=== PATIENT | male | born 1955 | race Caucasian/White ===

== ENCOUNTER 2020-01-11 15:22 | Inpatient (IN) | payer OTHER ==
--- NOTE | 2020-01-10 19:00 | NUR ---
BELT LOOP MAKER NOTE: PATIENT ARRIVED TO UNIT VIA ACLS PROTOCOL. 64-YEAR-OLD MALE WITH DX: POSSIBLE COVID. AAOX4. ON ROOM AIR, TOLERATING WELL, O2 SAT 94%. NO C/O PAIN AT THIS TIME. LUNG SOUNDS ARE CLEAR BUT DIMINISHED THROUGHOUT. ON DROPLET AND CONTACT ISOLATION. AMBULATORY WITH STANDBY ASSIST. BOWEL AND BLADDER CONTINENT. SKIN ISSUES NOTED, PHOTOS TAKEN WITH VERBAL CONSENT, AND PLACED IN CHART. ON BARREL BANDER SHOWING NSR, HR 80s. VITAL SIGNS TAKEN: TEMP 98.5F, HR 86, RR 18, O2 SAT 94%, BP 108/74. PATIENT HAS (R) AC G18; C/D/I. FLUSHING WELL. SAFETY PRECAUTIONS IMPLEMENTED. BED LOCKED, LOW POSITION, HOB ELEVATED, AND SIDE RAILS X 2 UP. CALL LIGHT PLACED WITHIN REACH. WILL CONT. TO MONITOR PATIENT. Addendum: 01/12/20 at 0354 by SIMONE AMEZQUITA RN WRONG TIME DOCUMENTED.
[~2020-01-11] VITALS: Ht 170.2 cm; Wt 70.8 kg
--- NOTE | 2020-01-11 15:40 | NUR ---
PT TO ER BED 08. HERE FOR FEVER W/ COUGH AND CONGESTION X 5 DAYS. PT STATES WAS TESTED FOR COVID19 YESTERDAY. TAKING TYLENOL AND COUGH MEDICINE W/ NO RELIEF. PT IS FEBRILE CLINICAL TRAINING SPECIALIST. PLACED ON MONITOR. AWAITING MD GRIGSBY.
--- NOTE | 2020-01-11 15:53 | NUR ---
DR LOPEZ AT BEDSIDE FOR EVAL.
[2020-01-11] MEDS ORDERED: ACETAMINOPHEN ES 500 MG TABLET PO ONE (16:00)
[2020-01-11 16:03] LABS: BASOPHILS % (AUTO) 0.7 % (0.0-2.0); EOSINOPHILS % (AUTO) 0.1 % (0.0-6.0); HEMATOCRIT 46 % (39-51); HEMOGLOBIN 15.9 g/dL (13.5-17.5); LYMPHOCYTES # (AUTO) 0.7 /CMM (0.8-4.8); LYMPHOCYTES % (AUTO) 10.1 % (20.0-44.0); MEAN CORPUSCULAR HGB CONC 34 g/dl (31.0-36.0); MEAN CORPUSCULAR VOLUME 106 fL (80-96); MONOCYTES # (AUTO) 0.8 /CMM (0.1-1.30); MONOCYTES % (AUTO) 10.6 % (2.0-12.0); NEUTROPHILS # (AUTO) 5.7 /CMM (1.8-8.9); NEUTROPHILS % (AUTO) 78.5 % (43.0-81.0); PLATELET COUNT (AUTO) 221 /CMM (150-450); RED BLOOD CELL COUNT(AUTO) 4.38 MIL/uL (4.5-6.0); WHITE BLOOD COUNT (AUTO) 7.2 K/uL (4.3-11.0)
--- NOTE | 2020-01-11 16:10 | NUR ---
RADIOLOGY AT BEDSIDE FOR CHEST XRAY.
[2020-01-11 16:16] LABS: CALCIUM, SERUM 8.6 mg/dL (8.5-10.1); CARBON DIOXIDE 26 mmol/L (21-32); CHLORIDE 97 mmol/L (98-107); CREATININE 0.9 mg/dL (0.6-1.3); GLUCOSE 140 mg/dL (74-106); POTASSIUM 4.3 mmol/L (3.5-5.1); SODIUM SERUM 133 mmol/L (136-145); UREA NITROGEN, BLOOD 9 mg/dL (7-18)
[2020-01-11 16:28] LABS: ALANINE AMINOTRANSFERASE 75 U/L (12-78); ALKALINE PHOSPHATASE 134 U/L (46-116); ASPARTATE AMINOTRANSFERASE 162 U/L (15-37); B-TYPE NATRIURETIC PEPTIDE 55 PG/ML (0-125); BILIRUBIN,TOTAL 0.3 mg/dL (0.2-1.0); TOTAL PROTEIN, SERUM 6.7 g/dL (6.4-8.2)
[2020-01-11] MEDS ORDERED: ACETAMINOPHEN ES 500 MG TABLET ONE (16:28)
[2020-01-11] MEDS ORDERED: PROM118S5 PO (16:30)
[2020-01-11] MEDS ORDERED: ACET-2605 PO (16:30)
[2020-01-11 16:31] LABS: D-DIMER 1.33 mg/L(FEU (0.17-0.50)
[2020-01-11 16:35] LABS: APPEARANCE,URINE Clear (CLEAR); BILIRUBIN,URINE MODERATE (NEGATIVE); BLOOD, URINE Negative Ery/uL (NEGATIVE); COLOR,URINE Yellow (YELLOW); KETONES,URINE Trace (NEGATIVE); LEUKOCYTE ESTERASE ,URINE Negative (NEGATIVE); NITRITE, URINE Negative (NEGATIVE); PROTEIN,URINE 30 mg/dl (NEGATIVE); UGLUCOSE Negative (NEGATIVE)
--- NOTE | 2020-01-11 17:01 | NUR ---
[facility] - CHASIDY ROMANO - PAGED VIA EXCHANGE
[2020-01-11 17:23] LABS: BACTERIA,URINE Few /HPF (None Seen); RBC,URINE 0-2 /HPF (0-2); SQUAMOUS EPITHELIAL CELL,UR Few /HPF (None Seen); WBC,URINE 0-2 /HPF (0-3)
[2020-01-11 17:34] LABS: CREATINE KINASE, TOTAL 41 U/L (39-308); FERRITIN 2835 ng/mL (8-388)
[2020-01-11 17:39] LABS: C-REACTIVE PROTEIN 3.4 mg/dL (0.0-0.9)
[2020-01-11 17:43] LABS: BAND % (MANUAL) 6 % (0.0-5.0); LYMPHOCYTES % (MANUAL) 11 % (16-48); MONOCYTES % (MANUAL) 8 % (0-11.0); NEUTROPHILS % (MANUAL) 75 (42-76)
[2020-01-11] MEDS ORDERED: IV NS 0.9% 1,000 ML IV PRN (18:02)
[2020-01-11] MEDS ORDERED: HYDROCODONE/APAP 5/325MG TABLET PO PRN (18:30)
[2020-01-11] MEDS ORDERED: MAGNESIUM HYDROXIDE 30 ML UDC PO PRN (18:30)
[2020-01-11] MEDS ORDERED: ZOLPIDEM TARTRATE 5 MG TABLET PO PRN (18:30)
[2020-01-11] MEDS ORDERED: GUAIFENESIN/CODEINE 10 ML UDC PO PRN (18:30)
[2020-01-11] MEDS ORDERED: Z GUARD REMEDY 2 OZ OINT TP PRN (18:30)
[2020-01-11] MEDS ORDERED: ONDANSETRON HCL/PF 4 MG/2 ML VIAL IVP PRN (18:30)
[2020-01-11] MEDS ORDERED: ACETAMINOPHEN 325 MG TABLET PO PRN (18:30)
[2020-01-11] MEDS ORDERED: MAG HYDROX/AL HYDROX/SIMETH 30 ML UDC PO PRN (18:30)
--- NOTE | 2020-01-11 18:35 | NUR ---
REPORT GIVEN TO NURSE. PT AWAITNG TRANSFER TO FLOOR.
[2020-01-11 18:54] LABS: C-REACTIVE PROTEIN 3.4 mg/dL (0.0-0.9)
--- NOTE | 2020-01-11 19:00 | NUR ---
CREDIT PRODUCTS OFFICER NOTE: PATIENT ARRIVED TO UNIT VIA ACLS PROTOCOL. 64-YEAR-OLD MALE WITH DX: POSSIBLE COVID. AAOX4. ON ROOM AIR, TOLERATING WELL, O2 SAT 94%. NO C/O PAIN AT THIS TIME. LUNG SOUNDS ARE CLEAR BUT DIMINISHED THROUGHOUT. ON DROPLET AND CONTACT ISOLATION. AMBULATORY WITH STANDBY ASSIST. BOWEL AND BLADDER CONTINENT. SKIN ISSUES NOTED, PHOTOS TAKEN WITH VERBAL CONSENT, AND PLACED IN CHART. ON SENIOR BENEFITS MANAGER SHOWING NSR, HR 80s. VITAL SIGNS TAKEN: TEMP 98.5F, HR 86, RR 18, O2 SAT 94%, BP 108/74. PATIENT HAS (R) AC G18; C/D/I. FLUSHING WELL. SAFETY PRECAUTIONS IMPLEMENTED. BED LOCKED, LOW POSITION, HOB ELEVATED, AND SIDE RAILS X 2 UP. CALL LIGHT PLACED WITHIN REACH. WILL CONT. TO MONITOR PATIENT.
[2020-01-11 20:00] VITALS: BP 108/74
[2020-01-11] MEDS ORDERED: HYDROXYCHLOROQUINE 200 MG TABLET PO SCH (20:00)
[2020-01-11] MEDS ORDERED: ENOXAPARIN SODIUM 40 MG/0.4 ML DISP.SYRIN SQ SCH (20:00)
--- NOTE | 2020-01-11 23:45 | NUR ---
RN NOTE: AT 0000, PATIENT'S HR WENT UP TO 140s. WENT TO PATIENT'S ROOM AND FOUND THAT PATIENT VOMITED 300CC OF BRIGHT RED BLOOD WITH LARGE CLOTS. CHARGE NURSE AND RN ASSESSED PATIENT. PER PATIENT, HE DRINKS A LOT OF ALCOHOL. PATIENT IS STILL AAOX4 BUT DROWSY. VITAL SIGNS TAKEN: TEMP 98.8F, HR 134, RR 18, O2 SAT 98%, BP 89/65. IVETTE PETERSEN MADE AWARE WITH NEW ORDERS NOTED. WILL CONT. TO MONITOR PATIENT. AT 0028, PATIENT STARTED ON IV NS BOLUS 1000 MLS X 1 AND PROTONIX IV. WILL ADMINISTER SANDOSTATIN DRIP ORDERED ONCE MED IS READY. AT 0100, PATIENT VOMITED AGAIN ABOUT 700CC OF BRIGHT RED BLOOD WITH LARGE CLOTS. IVETTE PETERSEN AWARE. AT 0130, IVETTE ROBOTIC TECHNICIAN AT BEDSIDE. PATIENT STILL HYPOTENSIVE AFTER BOLUS; SBP 50-60s. PER ROBOTIC TECHNICIAN, TRANSFER TO ICU. PATIENT REMAINS AAOX4, ABLE TO ANSWER QUESTIONS, AND SIGNED CONSENT FOR BLOOD TRANSFUSION. Addendum: 01/12/20 at 0431 by SIMONE AMEZQUITA RN AT 0000, PER PATIENT HE JUST HAD BM X 1 BLACK STOOLS.
[2020-01-12] VITALS (21 sets, daily range): BP systolic 0–121; BP diastolic 0–100
[2020-01-12] MEDS: IV NS 0.9% 1,000 ML IV PRN ×2 (00:28→03:26)
[2020-01-12] MEDS ORDERED: OCTREOTIDE 50 MCG in IV NS 0.9% 50 ML IV ONE (00:30)
[2020-01-12] MEDS ORDERED: OCTREOTIDE 500 MCG/ML VIAL ONE (00:30)
[2020-01-12] MEDS ORDERED: OCTREOTIDE 1,250 MCG in IV NS 0.9% 247.5 ML IV PRN (00:30)
[2020-01-12] MEDS ORDERED: PANTOPRAZOLE 40 MG VIAL IV SCH (00:30)
[2020-01-12] MEDS ORDERED: OCTREOTIDE 100 MCG/ML VIAL ONE (00:31)
[2020-01-12 01:51] LABS: BILIRUBIN,TOTAL 0.2 mg/dL (0.2-1.0); CALCIUM, SERUM 7.5 mg/dL (8.5-10.1); CREATININE 1.2 mg/dL (0.6-1.3); POTASSIUM 4.4 mmol/L (3.5-5.1); TOTAL PROTEIN, SERUM 4.7 g/dL (6.4-8.2)
[2020-01-12 01:58] LABS: BASOPHILS # (AUTO) 0.1 /CMM (0.0-0.2); BASOPHILS % (AUTO) 0.6 % (0.0-2.0); EOSINOPHILS % (AUTO) 0.1 % (0.0-6.0); HEMATOCRIT 31 % (39-51); HEMOGLOBIN 10.3 g/dL (13.5-17.5); LYMPHOCYTES # (AUTO) 1.3 /CMM (0.8-4.8); LYMPHOCYTES % (AUTO) 11.7 % (20.0-44.0); MEAN CORPUSCULAR HGB CONC 34 g/dl (31.0-36.0); MEAN CORPUSCULAR VOLUME 107 fL (80-96); MONOCYTES # (AUTO) 1.1 /CMM (0.1-1.30); MONOCYTES % (AUTO) 9.2 % (2.0-12.0); NEUTROPHILS % (AUTO) 78.4 % (43.0-81.0); PLATELET COUNT (AUTO) 210 /CMM (150-450); RED BLOOD CELL COUNT(AUTO) 2.86 MIL/uL (4.5-6.0); WHITE BLOOD COUNT (AUTO) 11.4 K/uL (4.3-11.0)
--- NOTE | 2020-01-12 02:15 | NUR ---
RN NOTE: REPORT GIVEN TO ICU NURSE SULEIMAN FOR CONTINUITY OF CARE.
--- NOTE | 2020-01-12 02:50 | NUR ---
SNUFF GRINDER AND SCREENER: RECEIVED PT TRANSFERRED FROM [facility] FLOOR A/O X3 WT RESTLESSNESS. ON 2L 02 VIA NC, DIAPHORETIC, PULSE OXIMETER UNABLE TO READ [address] ON ENFORCEMENT SAFETY OFFICER. NICOLA NAPIER ON ICU UNIT. WILL CONTINUE TO MONITOR FOR HYPOTENSION. SAFETY PRECAUTION NOTED.
[2020-01-12] MEDS ORDERED: IV NS 0.9% 1,000 ML IV PRN (03:11)
[2020-01-12] MEDS ORDERED: NOREPINEPHRINE 8 MG in IV NS 0.9% 242 ML IV PRN ×2 (03:30→04:00)
[2020-01-12] MEDS ORDERED: NOREPINEPHRINE 8MG/250ML RTU 250 ML IV ONE (04:21)
--- NOTE | 2020-01-12 04:25 | NUR ---
TUFTING CREELER: LEVOPHED STARTED ORDERED FOR HYPOTENSION DESPITE NS BOLUS GIVEN. WILL TITRATE NEEDED.
[2020-01-12 05:32] LABS: BAND % (MANUAL) 5 % (0.0-5.0); LYMPHOCYTES % (MANUAL) 12 % (16-48); MONOCYTES % (MANUAL) 7 % (0-11.0); NEUTROPHILS % (MANUAL) 76 (42-76)
--- NOTE | 2020-01-12 05:45 | NUR ---
TIN WORKER: PLACED ON 15L 02 VIA NRM, PT C/O UNABLE TO BREATHE, REMAINS DIAPHORETIC. WILL CALL DEMONSTRATOR KNITTING TO RECOMMEND STAT ABG FOR ACCURATE 02 READING.
[2020-01-12] MEDS ORDERED: IV NS 0.9% 1,000 ML IV ONE (06:00)
--- NOTE | 2020-01-12 06:10 | NUR ---
SURVEYOR CHAIN HELPER: 1 UNIT BLOOD TRANSFUSION DONE WT NO ADVERSE REACTIONS. PT REMAINS RESTLESS, ON 15L 02 VIA NRM, PULSE OXIMETER UNABLE TO CAPTURE 02 SAT AND DIAPHORETIC. ABLE TO TALK & FOLLOW COMMANDS. LEVOPHED MAX. RATE OF 1MCG/KG/MIN FOR BP SUPPORT, SANDOSTATIN AT 25MG/HR. RESTARTED NS AT 125ML/HR. F/C PLACED BUT NO URINE OUTPUT. CALLED AND NOTIFIED NICOLA NAPIER FOR ANURIA, VOMITING SMALL AMT OF BLOOD AND SMALL AMT OF SOFT TO LIQUID TARRY STOOL. HEAVY EQUIPMENT OPERATOR/PAVER SAID SHE PLACED STAT LAB ORDERS AND PT NEEDS ANOTHER 1 UNIT OF BLOOD TRANSFUSION. CALLED LAB FOR STAT LAB. RT STILL TRYING TO DRAW ABG. WILL CONTINUE TO MONITOR.
[2020-01-12 06:36] LABS: ABG BASE EXCESS -27.2 mmol/L; ABG OXYGEN SATURATION 98.6 % (92.0-98.5); ABG PCO2 20.8 mmHg (35.0-45.0); ABG PH 6.895 (7.350-7.450); ABG PO2 333.3 mmHg (75.0-100.0); AaDO2 358.9 mmHg; COHb 0.3 % (0.5-1.5); MetHb 0.8 % (0.0-1.5); O2Hb 97.5 % (94.0-97.0); SITE, ABG Left Radial; VENT MODE, BG 15L NRB
--- NOTE | 2020-01-12 06:40 | NUR ---
PRESS FEEDER: [facility] HOSPITALIST FOR CRITICAL ABG RESULT. AWAITING CALL BACK. PT PLACED ON 10L 02 VIA SIMPLE MASK. REMAINS RESTLESS, DIAPHORETIC. ASKED TO BE PLACED ON BED ROLDAN. WILL CONTINUE TO MONITOR.
--- NOTE | 2020-01-12 07:00 | NUR ---
FURNITURE TECHNICIAN: ENDORSED PT TO DAY SHIFT RN AND TO FOLLOW-UP WT HOSPITALIST FOR CRITICAL ABG RESULT. STILL AWAITING FOR LAB. TECH TO DRAW AM STAT LABS. ALL NEEDS MET.
--- NOTE | 2020-01-12 07:24 | NUR ---
RN NOTES PT IS ASYSTOLIC , NO BLOOD PRESSURE, NO PULSE , NO RESPIRATION, CODE BLUE INITIATED. CPR STARTED. REFER TO CODE BLUE SHEET.
[2020-01-12] MEDS ORDERED: PIPERACILLIN /TAZOBACTAM 3.375 G in IV D5W 50 ML IV ONE (07:30)
[2020-01-12] MEDS ORDERED: PANTOPRAZOLE 40 MG TABLET.DR PO SCH (07:30)
[2020-01-12] MEDS ORDERED: EPINEPHRINE (1:10,000) SYRINGE 1 MG/10 ML DISP.SYRIN IVP ONE (07:44)
[2020-01-12] MEDS ORDERED: FEE EMEERGENCY 1 MIN EA MC ONE (07:44)
[2020-01-12] MEDS ORDERED: Sodium Bicarbonate 50 MEQ/50 ML VIAL IV ONE (07:44)
--- NOTE | 2020-01-12 07:46 | NUR ---
RN NOTES PT PRONOUNCED BY ER , DR SKY .
--- NOTE | 2020-01-12 08:00 | NUR ---
RN NOTES DR ROBLES AND NURSING SALES ASSOCIATE NOTIFED.
--- NOTE | 2020-01-12 08:30 | NUR ---
RN NOTES PT IS NOT A MANAGER OF RECRUITING CASE,SPOKEN COFFEY IN MANAGER OF RECRUITING OFFICE .
--- NOTE | 2020-01-12 09:00 | NUR ---
RN NOTES PT IS HOMELESS AND UNABLE TO REACH AND INFORM FAMILY, WRONG FAMILY PHONE NUMBER NOTED.
--- NOTE | 2020-01-12 09:30 | NUR ---
RN NOTES POST MORTEM CARE DONE.
[2020-01-12] MEDS ORDERED: PIPERACILLIN /TAZOBACTAM 3.375 G in IV D5W 100 ML IV SCH (13:00)
== END 2020-01-12 07:45 | disposition expired | DRG 720 ==
LOC: ER 15:26 → TELE1 18:27 → ICU 01-12 02:25
PROC: 30233N1 Transfusion of Nonautologous Red Blood Cells into Peripheral Vein, Percutaneous Approach (ICD-10-PCS; principal; 2020-01-12)
DX: A41.89 Other specified sepsis (principal); U07.1 COVID-19; R57.1 Hypovolemic shock; E87.2 Acidosis; D62 Acute posthemorrhagic anemia; E87.1 Hypo-osmolality and hyponatremia; K92.2 Gastrointestinal hemorrhage, unspecified; Z59.0 Homelessness; F10.10 Alcohol abuse, uncomplicated; D75.89 Other specified diseases of blood and blood-forming organs; Z72.0 Tobacco use; R74.0 Nonspecific elevation of levels of transaminase and lactic acid dehydrogenase [LDH]; Y90.9 Presence of alcohol in blood, level not specified; B96.89 Other specified bacterial agents as the cause of diseases classified elsewhere
CPT/HCPCS: 36415; 36600; 71045-TC; 80053-TC; 81000-TC; 82550-TC; 82728-TC; 82962-TC; 83605-TC; 83615-TC; 83880; 84484-TC; 85025-TC; 85378-TC; 85730-TC; 86140-TC; 86850-TC; 86921-TC; 87040-TC; C9113; G0378; J0171; J1650; J2354; J2543; J7030; J7050; J7060; P9016-BL